=== PATIENT | female | born 1970 | race Caucasian/White ===

== ENCOUNTER 2016-08-02 23:42 | Emergency (ER) | payer MEDICAID ==
[2016-03-09 08:14] VITALS: BMI 36.4
[~2016-08-02 23:42] MED LIST: ADVIL200 MG PO; FLUTICASONE PRO16 GM NS; HYDROCODONE-APA1 TAB PO; IBUPROFEN600 MG PO; LEVAQUIN500 MG PO; LOPRESSOR25 MG PO; LORTAB 5/500 TA1 TA2 PO; MUCINEX DM ER1 EAC1 PO; NEXIUM20 MG PO; TESSALON PERLE100 MG PO
[2016-08-03 01:31] LABS: HEMATOCRIT 39.7 % (36.0-48.0); HEMOGLOBIN 13.3 g/dL (12-16); LYMPHOCYTES 29.4 % (15-50); MCHC 33.5 g/dL (31.0-37.0); MCV 89.4 fL (80.0-100.0); MEAN PLATELET VOLUME 10.2 fL (7.4-10.4); NEUTROPHILS 63.4 % (40-80); PLATELET COUNT 323 10x3/uL (130-400); RBC 4.44 10x6/uL (4.00-5.40); RDW 13.5 % (11.5-14.5); WBC 16.3 10x3/uL (4.8-10.8)
[2016-08-03 01:40] LABS: ALBUMIN 3.8 g/dL (3.4-5.0); ALKALINE PHOSPHATASE 58 U/L (46-116); ALT (SGPT) 31 U/L (10-68); BILIRUBIN - TOTAL 0.27 mg/dL (0.2-1.3); CALC OSMOLALITY 275 mosm/kg (275-300); CALCIUM 10.7 mg/dL (8.5-10.1); CARBON DIOXIDE 28.1 mmol/L (21.0-32.0); CHLORIDE - SERUM 103 mmol/L (98-107); CREATININE - SERUM 0.8 mg/dL (0.6-1.3); GLUCOSE 110 mg/dL (74-106); LIPASE 110 U/L (73-393); POTASSIUM - SERUM 3.7 mmol/L (3.5-5.1); PROTEIN - SERUM 8.3 g/dL (6.4-8.2); SODIUM 138 mmol/L (136-145); UREA NITROGEN 10 mg/dL (7-18); eGFR NON AFRICAN AMERICAN 82 mL/min (90-120)
[2016-08-03 03:49] LABS: APPEARANCE HAZY (CLEAR); BILIRUBIN NEGATIVE (NEGATIVE); COLOR YELLOW (YELLOW); GLUCOSE NEGATIVE (NEGATIVE); KETONE NEGATIVE (NEGATIVE); NITRITE POSITIVE (NEGATIVE); PROTEIN NEGATIVE (NEGATIVE); UROBILINOGEN NORMAL (NORMAL)
[2016-08-03 03:53] LABS: BACTERIA MANY /hpf (NONE SEEN); EPITHELIAL CELLS 0-5 /hpf (0-5); LEUKOCYTE ESTERASE TRACE (NEGATIVE); MUCUS <1+ /lpf (NONE SEEN); WHITE CELLS - URINE 0-5 /hpf (0-5)
[2016-08-30] MEDS ORDERED: BENADRYL25 MG PO (09:30)
== END 2016-08-03 04:58 | disposition home or self-care (01) ==
LOC: D.ER 23:42
PROVIDERS: Emergency Medicine
DX: N20.1 Calculus of ureter (principal); N39.0 Urinary tract infection, site not specified; D72.829 Elevated white blood cell count, unspecified

== ENCOUNTER 2016-08-31 05:23 | Day surgery (SDC) | payer MEDICAID ==
[2016-08-30 12:29] LABS: HEMOGLOBIN 12.4 g/dL (12-16)
[~2016-08-31] VITALS: Ht 149.9 cm; Wt 79.4 kg
[~2016-08-31 05:23] MED LIST changes: +BENADRYL25 MG PO
[2016-08-31 12:14] VITALS: BP 106/76; Ht 149.9 cm; Wt 79.4 kg
[2016-08-31] MEDS ORDERED: CYCLOBENZAPRINE10 MG PO (14:26)
[2016-08-31] MEDS ORDERED: OXYCODONE HCL5 MG PO (14:26)
--- NOTE | 2016-08-31 21:26 | OP ---
PATIENT NAME: JASPREET APODACA MEDICAL RECORD: [id number] :74 LOCATION:.[facility] ADMISSION DATE: SURGEON: DAMON RICHARD MD DATE OF OPERATION: 08/31/2016 SURGEON: Damon Richard MD PREOPERATIVE DIAGNOSES: 1. Chronic appendicitis. 2. Appendicolith. 3. Right lower quadrant pain. POSTOPERATIVE DIAGNOSES: 1. Chronic appendicitis. 2. Appendicolith. 3. Right lower quadrant pain. PROCEDURES: 1. Laparoscopic appendectomy. 2. Diagnostic laparoscopy. ANESTHESIA: General. COMPLICATIONS: None. SPECIMENS: Appendix. Case was clean contaminated. ESTIMATED BLOOD LOSS: 30 cc. OPERATIVE COURSE: After consent was obtained, the patient was taken to the operating room and placed in supine position on the operating table. Next, general anesthesia was given via endotracheal intubation after a timeout was performed that confirmed the correct patient and procedure. The abdomen was then prepped and draped in typical sterile fashion. Local anesthetic was administered just above the umbilicus. A stab incision was made with 11-blade scalpel. Using a 5-mm bladeless optical trocar, the abdomen was entered under direct laparoscopic vision. Adequate pneumoperitoneum was achieved. The abdominal cavity was inspected. No evidence of bowel injury. No evidence of bleeding. The patient was then placed into Trendelenburg position. A 12-mm trocar was placed in the left lower quadrant, 5-mm trocar was placed in the suprapubic position. The small bowel was run from the ligament of Treitz to the terminal ileum. There was some physiologic free fluid in the pelvis. At this time, the cecum was identified. It was mobilized off the pelvic side wall. The white line of Toldt was taken with electrocautery. The appendix was identified. A mesenteric window was created at the base of the appendix using a linear cutting stapler. The appendix was transected at its base, a second stapler ____ was then used to take mesoappendix. Once this was complete, the appendix was placed into an EndoCatch bag and sent for permanent pathology. The abdominal cavity was again inspected. There was no evidence of bowel injury. No evidence of bleeding. Next, the abdomen was copiously irrigated and suctioned. Once again, no evidence of bowel injury. No evidence of bleeding. Next, the 12-mm trocar was removed. The 12-mm trocar site was closed with 0 Vicryl suture with Ilan-Indy suture passer. At this time, all remaining instruments were OPERATIVE REPORT [id number] JASPREET APODACA removed. The abdomen was desufflated. Trocars were then removed. Skin was closed with 4-0 Monocryl, Mastisol and Steri-Strips. At the end of the case, all needle and instrument counts were correct. No complications occurred. TRANSINT:[id number] Voice Confirmation ID: [id number] DOCUMENT ID: [id number] DAMON RICHARD MD at [id number] CC: [id number] DICTATION DATE: 08/31/16 1425 [facility]ILLOF[facility] SURGERY: 08/31/16 2048 [facility] 08/31/[address] [id number]
== END 2016-08-31 16:40 | disposition home or self-care (01) ==
LOC: D.OPS 05:23 → D.PAN 12:45 → D.OPS 12:45
PROVIDERS: Anesthesiology
DX: K36 Other appendicitis (principal); K38.1 Appendicular concretions

== ENCOUNTER → 2018-11-07 11:13 | Outpatient (CLI) | payer MEDICAID ==
[2016-08-31 12:14] VITALS: BMI 35.4
[~2018-11-07 11:13] MED LIST changes: +CYCLOBENZAPRINE10 MG PO; +OXYCODONE HCL5 MG PO
== END | disposition home or self-care (01) ==
LOC: D.NM 11:13
PROVIDERS: ATTEND Internal Medicine Gastroenterology
DX: R10.13 Epigastric pain (principal); R11.2 Nausea with vomiting, unspecified

== ENCOUNTER → 2018-11-08 09:39 | Outpatient (CLI) | payer MEDICAID ==
[2016-08-31 12:14] VITALS: BMI 35.4
== END | disposition home or self-care (01) ==
LOC: D.CT 09:30
PROVIDERS: ATTEND Internal Medicine Gastroenterology
DX: R11.2 Nausea with vomiting, unspecified (principal); R10.9 Unspecified abdominal pain

== ENCOUNTER → 2018-11-14 09:02 | Outpatient (CLI) | payer MEDICAID ==
[2016-08-31 12:14] VITALS: BMI 35.4
[2018-11-14 10:01] LABS: T4 THYROXINE 8.7 ug/dL (4.7-13.3)
[2018-11-14 10:03] LABS: VALPROIC ACID (DEPAKOTE) < 3.0 ug/mL (50.0-100.0)
== END | disposition home or self-care (01) ==
LOC: D.LAB 09:02
PROVIDERS: ATTEND Internal Medicine Gastroenterology
DX: K59.00 Constipation, unspecified (principal)